=== PATIENT | female | born 1955 | race Caucasian/White ===

== ENCOUNTER 2025-05-02 12:30 | Outpatient (RCR) | payer OTHER, SELFPAY | END 2025-05-03 11:50 | disposition home or self-care (01) | PROVIDERS: PCP Family Medicine; Visit Provider Student in an Organized Health Care Education/Training Program | DX: I89.0 Lymphedema, not elsewhere classified (principal); Z51.89 Encounter for other specified aftercare | CPT/HCPCS: 97140; 97165; 97535 ==